=== PATIENT | male | born 1970 | race Caucasian/White ===

== ENCOUNTER 2017-05-02 08:32 | Observation (INO) | payer OTHER ==
[2017-05-02] MEDS ORDERED: Pantoprazole 40 MG Vial IVPUSH ONE (08:35)
[2017-05-02] MEDS ORDERED: Sodium Chloride 0.9% 1,000 ML IV ONE (08:35)
[2017-05-02] MEDS ORDERED: Aspirin 81 MG Tab.Chew PO ONE (08:35)
--- NOTE | 2017-05-02 08:37 | EDM.PDOC ---
ED HPI GENERAL MEDICAL PROBLEM - General Chief Complaint: Chest Pain Stated Complaint: BLOOD PRESSURE, CHEST PAIN Time Seen by Provider: 05/02/17 08:37 Source of Information: Reports: Patient - History of Present Illness INITIAL COMMENTS - FREE TEXT/NARRATIVE: HISTORY AND PHYSICAL: History of present illness: []Patient presents with complaint of chest pressure 5 out of 10 radiating to the right shoulder however it seems it is more right shoulder pain as I can reproduce pain with palpation of the shoulder he has had previous repair of his rotator cuff and also palpate muscles down his right arm and reproduce pain I can also reproduce pain with movement of the right arm and forwarded extension No fever nausea vomiting chills sweats Patient has had a stress test within last year with no acute findings, he was formerly on lisinopril aspirin and Lipitor his visit with cardiology resulted in stopping these medications per patient Review of systems: As per history of present illness and below otherwise all systems reviewed and negative. Past medical history: As per history of present illness and as reviewed below otherwise noncontributory. Surgical history: As per history of present illness and as reviewed below otherwise noncontributory. Social history: No reported history of drug or alcohol abuse. Family history: As per history of present illness and as reviewed below otherwise noncontributory. Physical exam: HEENT: Atraumatic, normocephalic, pupils reactive, negative for conjunctival pallor or scleral icterus, mucous membranes moist, throat clear, neck supple, nontender, trachea midline. Lungs: Clear to auscultation, breath sounds equal bilaterally, chest nontender. Heart: S1S2, regular, negative for clicks, rubs, or JVD. Abdomen: Soft, nondistended, nontender. Negative for masses or hepatosplenomegaly. Negative for costovertebral tenderness. Pelvis: Stable nontender. Genitourinary: Deferred. Rectal: Deferred. Extremities: Atraumatic, negative for cords or calf pain. Neurovascular unremarkable. Neuro: Awake, alert, oriented. Cranial nerves II through XII unremarkable. Cerebellum unremarkable. Motor and sensory unremarkable throughout. Exam nonfocal. Diagnostics: []Lab as below EKG Chest 1 view Therapeutics: []1 L normal saline bolus Nitroglycerin Protonix Impression: [Atypical ]Chest pain Pain improved with nitroglycerin Definitive disposition and diagnosis as appropriate pending reevaluation and review of above. Middle Chest Pain Score (Numeric/FACES): 8 - Related Data Allergies Allergy/AdvReac Type Severity Reaction Status Date / Time wheat dust Allergy Wheezing Uncoded 05/30/16 09:28 Home Meds: Home Meds Albuterol Sulfate [Proair Hfa] 1 - 2 puff INH ASDIRECTED PRN 11/28/16 [History] Omeprazole 20 mg PO DAILY 11/28/16 [History] Past Medical History - Past Health History Medical/Surgical History: Denies Medical/Surgical History HEENT History: Reports: None Cardiovascular History: Reports: Hypertension, GA, Other (See Below) Other Cardiovascular History: pt states doctor in [place] said he had a GA and the doctor in [place] said he did not and took him off his BP medication Respiratory History: Reports: Asthma, COPD, Other (See Below) Other Respiratory History: hx of asthma, rarely uses rescue inhaler, Albuterol inhaler. asthma is triggered by allergies to dust, wheat and high humidity Gastrointestinal History: Reports: GERD Genitourinary History: Reports: None Musculoskeletal History: Reports: None Neurological History: Reports: None Psychiatric History: Reports: None Endocrine/Metabolic History: Reports: Obesity/BMI 30+, Other (See Below) Hematologic History: Reports: None Immunologic History: Reports: None Oncologic (Cancer) History: Reports: None Dermatologic History: Reports: None - Past Surgical History HEENT Surgical History: Reports: Oral Surgery Musculoskeletal Surgical History: Reports: Shoulder Surgery - History Comment History Comment: patient's labs from 05.23.16 were reviewed. etoh "1x a year" Social & Family History - Family History Family Medical History: Noncontributory - Tobacco Use Smoking Status *Q: Current Every Day Smoker Years of Tobacco use: 20 Packs/Tins Daily: 1 Used Tobacco, but Quit: No Second Hand Smoke Exposure: Yes - Recreational Drug Use Recreational Drug Use: No Drug Use in Last 12 Months: No ED ROS GENERAL - Review of Systems Review Of Systems: ROS reveals no pertinent complaints other than HPI. ED EXAM, GENERAL - Physical Exam Exam: See Below Course - Vital Signs Last Recorded V/S: Last Vital Signs Temp 36.5 C 05/02/17 08:35 Pulse 68 05/02/17 09:12 Resp 18 05/02/17 09:12 BP 112/72 05/02/17 09:12 Pulse Ox 96 05/02/17 09:12 - Orders/Labs/Meds Orders: Active Orders 24 hr Category Date Time Status EKG Documentation Completion [RC] STAT Care 05/02/17 08:35 Active UA W/MICROSCOPIC [URIN] Stat Lab 05/02/17 08:35 Uncollected Sodium Chloride 0.9% [Normal Saline] 1,000 ml Med 05/02/17 08:35 Active IV STAT Medication Orders Sodium Chloride (Normal Saline) 1,000 mls @ 999 mls/hr IV STAT ONE Stop: 05/02/17 09:35 Last Admin: 05/02/17 08:46 Dose: 999 mls/hr Labs: Laboratory Tests 05/02/17 05/02/17 05/02/17 Range/Units 08:35 08:35 08:35 WBC 10.30 (4.0-11.0) K/uL RBC 5.36 (4.50-5.90) M/uL Hgb 16.2 (13.0-17.0) g/dL Hct 47.5 (38.0-50.0) % MCV 88.6 (80.0-98.0) fL MCH 30.2 (27.0-32.0) pg MCHC 34.1 (31.0-37.0) g/dL RDW Std Deviation 47.4 (28.0-62.0) fl RDW Coeff of Ld 15 (11.0-15.0) % Plt Count 320 (150-400) K/uL MPV 10.40 (7.40-12.00) fL Neut % (Auto) 56.7 (48.0-80.0) % Lymph % (Auto) 30.5 (16.0-40.0) % [place] % (Auto) 9.1 (0.0-15.0) % Eos % (Auto) 3.0 (0.0-7.0) % Baso % (Auto) 0.7 (0.0-1.5) % Neut # (Auto) 5.8 H (1.4-5.7) K/uL Lymph # (Auto) 3.1 H (0.6-2.4) K/uL [place] # (Auto) 0.9 H (0.0-0.8) K/uL Eos # (Auto) 0.3 (0.0-0.7) K/uL Baso # (Auto) 0.1 (0.0-0.1) K/uL Nucleated RBC % 0.0 /100WBC Nucleated RBCs # 0 K/uL Sodium 138 (136-146) mmol/L Potassium 3.9 (3.5-5.1) mmol/L Chloride 106 (98-110) mmol/L Carbon Dioxide 22 (21-31) mmol/L BUN 21 (6.0-23.0) mg/dL Creatinine 1.2 (0.6-1.5) mg/dL Est Cr Clr Drug Dosing 80.27 mL/min Estimated GFR (MDRD) > 60.0 ml/min Glucose 109 (60-110) mg/dL Calcium 8.9 (8.8-10.8) mg/dL Total Bilirubin 0.4 (0.1-1.5) mg/dL AST 26 (5-40) IU/L ALT 43 (8-54) IU/L Alkaline Phosphatase 91 (40-150) Troponin I < 0.10 (0.0-0.29) NG/ML Total Protein 7.7 (6.0-8.0) g/dL Albumin 4.3 (3.5-5.0) g/dL Globulin 3.4 (2.0-3.5) g/dL Albumin/Globulin Ratio 1.3 (1.3-2.8) Meds: Medications Generic Name Dose Route Start Last Admin Trade Name Freq PRN Reason Stop Dose Admin Sodium Chloride 1,000 mls @ 999 mls/hr 05/02/17 08:35 05/02/17 08:46 Normal Saline IV 05/02/17 09:35 999 mls/hr STAT ONE Administration Discontinued Medications Generic Name Dose Route Start Last Admin Trade Name Freq PRN Reason Stop Dose Admin Aspirin 324 mg 05/02/17 08:35 05/02/17 08:46 Aspirin PO 05/02/17 08:36 324 mg ONETIME ONE Administration Nitroglycerin 0.4 mg 05/02/17 08:35 05/02/17 08:58 Nitrostat SL 05/02/17 08:46 0.4 mg Q5M PRN Administration Chest Pain Pantoprazole Sodium 80 mg 05/02/17 08:35 05/02/17 08:46 Protonix Iv IVPUSH 05/02/17 08:36 80 mg .BOLUS ONE Administration Departure - Departure Time of Disposition: 09:37 Disposition: Home, Self-Care 01 Condition: Fair Clinical Impression: Atypical chest pain - Discharge Information Forms: ED Department Discharge - My Orders Last 24 Hours: My Active Orders 05/02/17 08:35 EKG Documentation Completion [RC] STAT UA W/MICROSCOPIC [URIN] Stat Sodium Chloride 0.9% [Normal Saline] 1,000 ml IV STAT - Assessment/Plan Last 24 Hours: My Active Orders 05/02/17 08:35 EKG Documentation Completion [RC] STAT UA W/MICROSCOPIC [URIN] Stat Sodium Chloride 0.9% [Normal Saline] 1,000 ml IV STAT
[2017-05-02] MEDS: Nitroglycerin 0.4 MG Tab.SL SL PRN ×3 (08:45→08:58)
[2017-05-02 09:09] LABS: CHLORIDE,CL 106 mmol/L (98-110); SODIUM,NA 138 mmol/L (136-146)
--- NOTE | 2017-05-02 09:31 | CR ---
EXAMINATION: Portable chest radiograph. HISTORY: Pain. FINDINGS: The trachea is midline. The cardiomediastinal silhouette is within normal limits. No pulmonary infil trates, effusions or pneumothorax. Osseous structures appear unremarkable. IMPRESSION: No acute cardiopulmonary process.
[2017-05-02] MEDS: Sodium Chloride 0.9% 1,000 ML IV SCH ×2 (09:47→17:22)
[2017-05-02] MEDS ORDERED: Ondansetron 4 MG/2 ML SDV IVPUSH PRN (12:04)
[2017-05-02] MEDS ORDERED: Acetaminophen 325 MG Tab PO PRN (12:04)
--- NOTE | 2017-05-02 12:10 | PCM.HP ---
H&P History of Present Illness - General Date of Service: 05/02/17 Admit Problem/Dx: Admission Diagnosis/Problem Admission Diagnosis/Problem Atypical chest pain Source of Information: Patient History Limitations: Reports: No Limitations - History of Present Illness Initial Comments - Free Text/Narative: This 47 year old male with pmh of hypertension which was treated at one time, not anymore, obesity and a smoker presented to the ED with complaints of chest pressure. The pressure started this morning when he became angry at work with co -workers, He denies any associated symptoms such as SOB, diaphoresis, palpitations or radiation of the pain to L jaw or arm. He does have chronic R shoulder pain from a rotator cuff surgery 1 year ago. The pain worsened with more anger and was relived once he got 3 SL nitro in the ED. The days leading up to today, he felt normal no illness or concerns. He recently started this job and reports "I just can't deal with stupid." He had a stress test 1 year ago in [place], [place], which was normal and he was taken off ASA and Lisinopril. He smokes 1/2- 1 ppd cigarettes and denies alcohol or recreational drug use. In the ED troponin negative, CXR negative. EKG SR [address] segment changes. He was treated with Protonix and 3 SL nitro with resolution of his chest pain. He will be admitted for observation for chest pain rule out ACS. Middle Chest Pain Score (Numeric/FACES): 2 - Related Data Allergies/Adverse Reactions: Allergies Allergy/AdvReac Type Severity Reaction Status Date / Time wheat dust Allergy Wheezing Uncoded 05/30/16 09:28 Home Medications: Home Meds Albuterol Sulfate [Proair Hfa] 1 - 2 puff INH ASDIRECTED PRN 11/28/16 [History] Omeprazole 20 mg PO DAILY 11/28/16 [History] Aspirin 81 mg PO DAILY tab.chew 05/03/17 [Rx] Past Medical History - Past Health History Medical/Surgical History: Denies Medical/Surgical History HEENT History: Reports: None Cardiovascular History: Reports: Hypertension, Other (See Below). Denies: CAD, [place] Other Cardiovascular History: pt states doctor in [place] said he had a [place] and the doctor in [place] said he did not and took him off his BP medication Respiratory History: Reports: Asthma, COPD, Other (See Below) Other Respiratory History: hx of asthma, rarely uses rescue inhaler, Albuterol inhaler. asthma is triggered by allergies to dust, wheat and high humidity Gastrointestinal History: Reports: GERD Genitourinary History: Reports: None. Denies: Chronic Renal Insuffiency Musculoskeletal History: Reports: None Neurological History: Reports: None Psychiatric History: Reports: None Endocrine/Metabolic History: Reports: Obesity/BMI 30+. Denies: Hypothyroidism Hematologic History: Reports: None Immunologic History: Reports: None Oncologic (Cancer) History: Reports: None Dermatologic History: Reports: None - Past Surgical History Head Surgeries/Procedures: Reports: None HEENT Surgical History: Reports: Oral Surgery Musculoskeletal Surgical History: Reports: Shoulder Surgery - History Comment History Comment: patient's labs from 05.23.16 were reviewed. etoh "1x a year" Social & Family History - Family History Family Medical History: Noncontributory - Tobacco Use Smoking Status *Q: Current Every Day Smoker Years of Tobacco use: 25 Packs/Tins Daily: 1 Used Tobacco, but Quit: No Second Hand Smoke Exposure: Yes - Caffeine Use Caffeine Use: Reports: Coffee - Recreational Drug Use Recreational Drug Use: No Drug Use in Last 12 Months: No - Living Situation & Occupation Living situation: Reports: Occupation: Employed H&P Review of Systems - Review of Systems: Review Of Systems: See Below General: Reports: No Symptoms. Denies: Fever, Chills, Malaise Pulmonary: Reports: No Symptoms. Denies: Shortness of Breath, Wheezing, Cough, Sputum Cardiovascular: Reports: Chest Pain. Denies: Palpitations, Edema Gastrointestinal: Reports: No Symptoms. Denies: Abdominal Pain, Black Stool, Bloody Stool, Nausea, Vomiting Genitourinary: Reports: No Symptoms. Denies: Dysuria, Frequency, Burning Musculoskeletal: Reports: Joint Pain (R shoulder pain) Skin: Reports: No Symptoms Psychiatric: Reports: No Symptoms Neurological: Reports: No Symptoms Hematologic/Lymphatic: Reports: No Symptoms Immunologic: Reports: No Symptoms Exam - Exam Exam: See Below - Vital Signs Vital Signs: Last Vital Signs Temp 97.3 F 05/02/17 10:24 Pulse 57 L 05/02/17 10:24 Resp 16 05/02/17 10:24 BP 106/67 05/02/17 10:24 Pulse Ox 97 05/02/17 10:24 Weight: 109.406 kg - Exam General: Alert, Oriented, Cooperative HEENT: Conjunctiva Clear, Mucosa Moist & [place], Pupils Equal, Pupils Reactive Neck: Supple, Trachea Midline, 2 Lungs: Clear to Auscultation, Normal Respiratory Effort Cardiovascular: Regular Rate, Regular Rhythm, Normal S1, Normal S2, Other (no chest tenderness). No: Systolic Murmur GI/Abdominal Exam: Normal Bowel Sounds, Soft, Non-Tender, No Organomegaly, No Distention, No Abnormal Bruit, No Mass, Pelvis Stable Extremities: Normal Inspection, Normal Range of Motion, Non-Tender, No Pedal Edema, Normal Capillary Refill Skin: Warm, Dry, Intact Neuro Extensive - Mental Status: Alert, Oriented x3, Normal Mood/Affect, Normal Cognition - Patient Data Result Diagrams: 05/02/17 08:35 05/02/17 08:35 *Q Meaningful Use (ADM) - VTE *Q VTE Criteria *Q: - VTE Risk Assess *Q Each Risk Factor Represents 1 Point: Age 41 - 59 years, Obesity (BMI greater than 30) Total Score 1 Point Risk Factors: 2 Each Risk Factor Represents 2 Points: None Total Score 2 Point Risk Factors: 0 Each Risk Factor Represents 3 Points: None Total Score 3 Point Risk Factors: 0 Each Risk Factor Represents 5 Points: None Total Score 5 Point Risk Factors: 0 Venous Thromboembolism Risk Factor Score *Q: 2 - Stroke *Q Stroke Criteria *Q: - AMI *Q AMI Criteria *Q: - Problem List (1) Atypical chest pain SNOMED Code(s): 969856227 ICD Code: R07.89 - OTHER CHEST PAIN Status: Acute (2) Asthma SNOMED Code(s): 104228025 ICD Code: J45.909 - UNSPECIFIED ASTHMA, UNCOMPLICATED Status: Chronic Qualifiers: Asthma severity: mild intermittent Asthma complication type: uncomplicated Qualified Code(s): J45.20 - Mild intermittent asthma, uncomplicated (3) GERD (gastroesophageal reflux disease) SNOMED Code(s): 612751248 ICD Code: K21.9 - GASTRO-ESOPHAGEAL REFLUX DISEASE WITHOUT ESOPHAGITIS Status: Chronic Qualifiers: Esophagitis presence: without esophagitis Qualified Code(s): K21.9 - Gastro -esophageal reflux disease without esophagitis Problem List Initiated/Reviewed/Updated: Yes Orders Last 24hrs: Active Orders 24 hr Category Date Time Status Antiembolic Devices [RC] PER UNIT ROUTINE Care 05/02/17 12:05 Ordered Intake and Output [RC] QSHIFT Care 05/02/17 12:04 Ordered Oxygen Therapy [RC] PRN Care 05/02/17 12:04 Ordered Up ad Leah [RC] ASDIRECTED Care 05/02/17 12:04 Ordered VTE/DVT Education [RC] PER UNIT ROUTINE Care 05/02/17 12:04 Ordered Vital Signs [RC] Q4H Care 05/02/17 12:04 Ordered Heart Healthy Diet [DIET] Diet 05/02/17 Dinner Ordered GLYCOSYLATED HEMOGLOBIN,HGBA1C [CHEM] Routine Lab 05/02/17 12:04 Ordered LIPID PANEL [CHEM] Routine Lab 05/02/17 12:04 Ordered TROPONIN I [CHEM] Q6H Lab 05/02/17 14:30 Ordered TROPONIN I [CHEM] Q6H Lab 05/02/17 20:30 Ordered Acetaminophen [Tylenol] Med 05/02/17 12:04 Ordered 650 mg PO Q4H PRN Ondansetron [Zofran] Med 05/02/17 12:04 Ordered 4 mg IVPUSH Q4H PRN Sodium Chloride 0.9% [Normal Saline] 1,000 ml Med 05/02/17 09:45 Active IV STAT Sequential Compression Device [OM.PC] Per Unit Routine Oth 05/02/17 12:05 Ordered Resuscitation Status Routine Resus Stat 05/02/17 12:04 Ordered Medication Orders Acetaminophen (Tylenol) 650 mg PO Q4H PRN PRN Reason: Pain Sodium Chloride (Normal Saline) 1,000 mls @ 125 mls/hr IV STAT PURVI Last Admin: 05/02/17 09:47 Dose: 125 mls/hr Ondansetron HCl (Zofran) 4 mg IVPUSH Q4H PRN PRN Reason: Nausea Assessment/Plan Comment:: This 47 year old male admitted with atypical chest pain 1. Chest pain: Will trend troponins, monitor on telemetry. Lipid panel completed , LDL 106, HDL 21 and total 152. A1c 6.6 2. Diabetes: new diagnosis, A1c 6.6. Will Consult DM educator and discuss with patient regarding dietary changes or starting Metformin. 3. GERD: Continue Omeprazole VTe prophylaxis: SCDs. DISCHARGE PLAN: Discharge diagnoses: Atypical chest pain-resolved New onset DM- A1c 6.6 Obesity Smoker Wallace was admitted, all troponins returned negative, ACS ruled out. He had negative stress test [address] Wade in [place]. He would like to see Malaika Galvez [employer] prior to see another cardiology and obtaining. This chest pain likely related to emotions, became very upset with co-workers then started having chest pressure. In work-up it was noted A1c slightly elevated at 6.6. After discussion regarding diet and exercise and or medications, he would like to try diet change first before starting Metformin. We discussed for 15 plus minutes diet and life style changes he should complete. This includes no further sweet tea or sodas and exercise as well as smoking cessation. He verbalizes he want to improve this. I did notify PCP, Malaika Galvez regarding new diagnosis and she will follow up with him. Follow up as scheduled with PCP and breastfeeding educator. He is to return to ED or clinic if concerns should arise.
[2017-05-03] MEDS: Sodium Chloride 0.9% 1,000 ML IV SCH (01:35)
[2017-05-03 08:12] VITALS: BP 110/71
[2017-05-03] MEDS ORDERED: Aspirin 81 MG Tab.Chew PO SCH (09:00)
== END 2017-05-03 11:05 | disposition home or self-care (01) ==
LOC: MW.ED 08:32 → MW.MS 09:37
PROVIDERS: ADMIT Internal Medicine; ATTEND Internal Medicine
DX: R07.89 Other chest pain (principal); F17.210 Nicotine dependence, cigarettes, uncomplicated; I10 Essential (primary) hypertension; J44.1 Chronic obstructive pulmonary disease with (acute) exacerbation; K21.9 Gastro-esophageal reflux disease without esophagitis; I25.2 Old myocardial infarction; E66.9 Obesity, unspecified; Z68.30 Body mass index [BMI] 30.0-30.9, adult; Z79.51 Long term (current) use of inhaled steroids; Z79.899 Other long term (current) drug therapy; Z79.82 Long term (current) use of aspirin; Z98.890 Other specified postprocedural states; Z91.048 Other nonmedicinal substance allergy status
CPT/HCPCS: 36415; 71010; 80053; 80061; 81001; 83036; 84484; 85025; 93005; 96361; 96374; 99285; A9270; C9113; G0378; J7040; 99284

== ENCOUNTER 2017-10-26 16:21 | Emergency (ER) | payer OTHER ==
--- NOTE | 2017-10-26 18:21 | EDM.PDOC ---
ED HPI GENERAL MEDICAL PROBLEM - General Chief Complaint: Lower Extremity Injury/Pain Stated Complaint: PT HURT LT ANKLE Time Seen by Provider: 10/26/17 18:17 Source of Information: Reports: Patient History Limitations: Reports: No Limitations - History of Present Illness INITIAL COMMENTS - FREE TEXT/NARRATIVE: HISTORY AND PHYSICAL: []47-year-old male presenting with left ankle pain History of Present Illness: []Patient has been coming off a ladder and stepped wrong as he came off it. It sounds like he had inverted his left ankle and has worsened with pain. Review of Systems: As per history of present illness and below otherwise all systems reviewed and negative. Past medical history: As per history of present illness and as reviewed below otherwise noncontributory. Surgical history: As per history of present illness and as reviewed below otherwise noncontributory. Social history: No reported history of drug or alcohol abuse. Family history: As per history of present illness and as reviewed below otherwise noncontributory. Physical exam: Alert and oriented male answering questions appropriately speaking in full sentences with no shortness of breath HEENT: Atraumatic, normocehpalic, pupils reactive, negative for conjunctival pallor or scleral icterus, mucous membranes moist, throat clear, neck supple, nontender, trachea midline. Lungs: Clear to auscultation, breath sounds equal bilaterally, chest non tender. Heart: S1S2, regular, negative for clicks, rubs, or JVD. Abdomen: Soft, nondistended, nontender. Negative for masses or hepatossplenmegaly. Negative for costovertebral tenderness. Pelvis: Stable nontender. Genitourinary: Deferred. Rectal: Deferred Extremities: Slight ecchymosis to the lateral malleolus area, edema is present negative for cords or calf pain. Neurovascular unremarkable. Neuro: Awake, alert, oriented. Cranial nerves II through XII unremarkable. Cerebellum unremarkable. Motor and sensory unremarkable throughout. Exam nonfocal. Diagnostics: [X-ray left ankle] Therapeutics: []Patient refused Toradol offered Impression: [Sprain left ankle] Plan: []The discharge to home Jose wrap for discomfort Nonweightbearing 24 hours then gradually increase weight Definitive disposition and diagnosis as appropriate pending reevaluation and review of above. Onset: Today, Sudden Duration: Hour(s):, Getting Worse Location: Reports: Lower Extremity, Left left ankle Pain Score (Numeric/FACES): 7 - Related Data Allergies Allergy/AdvReac Type Severity Reaction Status Date / Time wheat dust Allergy Wheezing Uncoded 10/26/17 17:03 Home Meds: Home Meds Aspirin 81 mg PO DAILY tab.chew 05/03/17 [Rx] Lisinopril 10/26/17 [History] metFORMIN [Glucophage] 10/26/17 [History] Past Medical History - Past Health History Medical/Surgical History: Denies Medical/Surgical History HEENT History: Reports: None Cardiovascular History: Reports: Hypertension, Other (See Below) Other Cardiovascular History: pt states doctor in [place] said he had a DE and the doctor in [place] said he did not and took him off his BP medication Respiratory History: Reports: Asthma, COPD, Other (See Below) Other Respiratory History: hx of asthma, rarely uses rescue inhaler, Albuterol inhaler. asthma is triggered by allergies to dust, wheat and high humidity Gastrointestinal History: Reports: GERD Genitourinary History: Reports: None Musculoskeletal History: Reports: None Neurological History: Reports: None Psychiatric History: Reports: None Endocrine/Metabolic History: Reports: Obesity/BMI 30+ Hematologic History: Reports: None Immunologic History: Reports: None Oncologic (Cancer) History: Reports: None Dermatologic History: Reports: None - Past Surgical History Head Surgeries/Procedures: Reports: None HEENT Surgical History: Reports: Oral Surgery Musculoskeletal Surgical History: Reports: Shoulder Surgery - History Comment History Comment: patient's labs from 05.23.16 were reviewed. etoh "1x a year" Social & Family History - Family History Family Medical History: Noncontributory - Tobacco Use Smoking Status *Q: Current Every Day Smoker Years of Tobacco use: 20 Packs/Tins Daily: 1 Used Tobacco, but Quit: No Second Hand Smoke Exposure: Yes - Caffeine Use Caffeine Use: Reports: Coffee - Recreational Drug Use Recreational Drug Use: No Drug Use in Last 12 Months: No - Living Situation & Occupation Living situation: Reports: Occupation: Employed Review of Systems - Review of Systems Review Of Systems: ROS reveals no pertinent complaints other than HPI. ED EXAM, GENERAL - Physical Exam Exam: See Below (See dictation) Course - Vital Signs Last Recorded V/S: Last Vital Signs Temp 35.3 C 10/26/17 17:04 Pulse 83 10/26/17 17:04 Resp 18 10/26/17 17:04 BP 116/79 10/26/17 17:04 Pulse Ox 95 10/26/17 17:04 - Orders/Labs/Meds Orders: Active Orders 24 hr Category Date Time Status Ankle Min 3V Lt [CR] Stat Exams 10/26/17 17:08 Taken Departure - Departure Time of Disposition: 18:20 Disposition: Home, Self-Care 01 Condition: Good Clinical Impression: Left ankle sprain Qualifiers: Encounter type: initial encounter Involved ligament of ankle: unspecified ligament Qualified Code(s): S93.402A - Sprain of unspecified ligament of left ankle, initial encounter - Discharge Information Instructions: Crutch Use, [id number], Ankle Sprain, [id number] Referrals: PCP,None [Primary Care Provider] - Additional Instructions: The following information is given to patients seen in the emergency department who are being discharged to home. This information is to outline your options for follow-up care. We provide all patients seen in our emergency department with a follow-up referral. The need for follow-up, as well as the timing and circumstances, are variable depending upon the specifics of your emergency department visit. If you don't have a primary care physician on staff, we will provide you with a referral. We always advise you to contact your personal physician following an emergency department visit to inform them of the circumstance of the visit and for follow-up with them and/or the need for any referrals to a consulting specialist. The emergency department will also refer you to a specialist when appropriate. This referral assures that you have the opportunity for followup care with a specialist. All of these measure are taken in an effort to provide you with optimal care, which includes your followup. Under all circumstances we always encourage you to contact your private physician who remains a resource for coordinating your care. When calling for followup care, please make the office aware that this follow-up is from your recent emergency room visit. If for any reason you are refused follow-up, please contact the [facility] emergency department at and asked to speak to the emergency department charge nurse. Use crutch walking nonweightbearing 24 hours Tylenol for discomfort Elevate and ice Jose wrap for discomfort See her provider primary care provider in the next 2-3 days - My Orders Last 24 Hours: My Active Orders 10/26/17 17:08 Ankle Min 3V Lt [CR] Stat - Assessment/Plan Last 24 Hours: My Active Orders 10/26/17 17:08 Ankle Min 3V Lt [CR] Stat
[2017-10-26 18:45] VITALS: BP 120/78
--- NOTE | 2017-10-29 15:44 | CR ---
EXAM DATE: 10/26/17 PATIENT'S AGE: 47 Patient: MICHI FLORES Facility: [place], [place] Site . Site : [id number] Study: XRay Extremity Left ankle [id number]/19/2018 5:32:11 PM Ordering Physician: Doctor Hatch Final Report: Indication: Pain. Fall. Technique: Left ankle three views. Comparison: None. Findings: No acute fracture or dislocation. Dorsal and plantar calcaneal osteophytes. Osseous structures are otherwise unremarkable. Soft tissues as imaged are unremarkable. Impression: No acute osseous abnormality. Dictated by Gucci Thibodeaux MD @ 10/26/2017 6:12:05 PM Dictated by: Gucci Thibodeaux MD @ 10/26/2017 18:12:09 (Electronic Signature) Report Signed by Proxy. [email or web address]
== END 2017-10-26 18:41 | disposition home or self-care (01) ==
LOC: MW.ED 16:21
DX: S93.402A Sprain of unspecified ligament of left ankle, initial encounter (principal); I10 Essential (primary) hypertension; J44.9 Chronic obstructive pulmonary disease, unspecified; K21.9 Gastro-esophageal reflux disease without esophagitis; F17.210 Nicotine dependence, cigarettes, uncomplicated; Z79.82 Long term (current) use of aspirin; Z91.018 Allergy to other foods; W11.XXXA Fall on and from ladder, initial encounter
CPT/HCPCS: 73610-26-LT; 73610-LT; 99283